=== PATIENT | male | born 1970 | race Caucasian/White ===

== ENCOUNTER 2020-04-26 14:56 | Emergency (ER) | payer OTHER, SELFPAY ==
[2020-04-26 15:05] VITALS: BP 169/75; PULSE 76; RESP 18; TEMP 36.1; O2SAT 98
--- NOTE | 2020-04-26 15:08 | ED.WOUNDLAC ---
HPI - Wound/Laceration General Chief Complaint: Wound/Laceration Stated Complaint: Laceration Time Seen by Provider: 04/26/20 15:08 Source: patient Mode of arrival: ambulatory Limitations: no limitations History of Present Illness HPI narrative: Patient is a 50-year-old male who presents for evaluation of left second finger laceration. Patient reports that he was using a drill when a piece of metal slipped when he removed the drill coming through the outside part of his left finger. Minimal active bleeding. No pain. No pain with movement. No numbness. Patient is up-to-date on his tetanus. Patient is right-hand dominant Related Data Allergies Allergy/AdvReac Type Severity Reaction Status Date / Time No Known Allergies Allergy Verified 04/26/20 15:09 Review of Systems Review of Systems: Narrative: CONSTITUTIONAL: Denies fever CARDIOVASCULAR: Denies chest pain RESPIRATORY: Denies cough GASTROINTESTINAL: Denies abdominal pain SKIN: Denies rash MUSCULOSKELETAL: Denies finger pain NEUROLOGIC: Denies numbness PMFSH Past Medical History Medical History Small bowel obstruction Social History Social History Smoking status: Never smoker Alcohol intake: current Drinks per week: 6 Exam Narrative: Exam Narrative: GENERAL: Awake, alert, conversant HEAD: Normocephalic, atraumatic. EYES: PERRLA and EOMI. ENT: Nares clear, no rhinorrhea or epistaxis. Mucous membranes moist. NECK: Supple. CHEST: No respiratory distress, breathing even and non labored HEART: Regular rate, sinus rhythm ABDOMEN:Non distended, non tender EXTREMITIES: Normal range of motion. No edema. SKIN: Warm, dry, distal 2 cm superficial, linear finger laceration to the volar aspect of the distal second left digit. Radial pulse 2+. Intact sensation median, ulnar, radial nerve distribution. Full flexion at the DIP and PIP without limitation. NEURO:No focal deficits. Alert and oriented x3 Course Vital Signs Vital signs: Vital Signs Temperature 36.1 C L 04/26/20 15:05 Pulse Rate 76 04/26/20 15:05 Respiratory Rate 18 04/26/20 15:05 Blood Pressure 169/75 H 04/26/20 15:05 Pulse Oximetry 98 04/26/20 15:05 Temperature 36.1 C L 04/26/20 15:05 Pulse Rate 76 04/26/20 15:05 Respiratory Rate 18 04/26/20 15:05 Blood Pressure 169/75 H 04/26/20 15:05 Pulse Oximetry 98 04/26/20 15:05 Procedures Laceration Laceration 1: Date: 04/26/20 Time: 15:54 Site: hand (finger) Side (If applicable): left Size (cm): 2 Description: linear and clean Depth: simple, single layer Local Anesthetic: lidocaine 1% Amount of anesthesia used (mL): 2 Pre-repair: wound explored and irrigated ====== Skin Level ====== Skin layer closed with: prolene Size (cm): 5-0 Number of sutures: 3 Technique: simple, interrupted ====== Subcutaneous Layer ====== ====== Muscle Layer ====== ====== Tendon Layer ====== MDM - Wound/Laceration MDM Narrative Medical decision making narrative: Patient was superficial finger laceration that was repaired. Patient is up-to-date on his tetanus. No neurovascular deficits. Patient wound repaired and discharged home with wound discharge instructions. Differential Diagnosis Differential diagnosis: Likely laceration Discharge Plan Discharge Clinical Impression: Laceration Patient Disposition: Home, Self-Care Condition: Stable Instructions: Laceration (ED) Additional Instructions: Please keep your wound clean and dry. Please do not soak it in any water. You may wash with antibacterial soap and pat it to dry. Please do not scrub the wound. Signs of infection including redness, purulent drainage from the site, worsening pain. If you feel any of these are present, please return to the emerg
== END 2020-04-26 16:09 | disposition home or self-care (01) ==
PROVIDERS: Emergency Provider Emergency Medicine; PCP Family Medicine
DX: S61.211A Laceration without foreign body of left index finger without damage to nail, initial encounter (principal); W29.8XXA Contact with other powered hand tools and household machinery, initial encounter
CPT/HCPCS: 12001; 99282

== ENCOUNTER 2020-10-16 07:30 | Outpatient (RCR) | payer OTHER, SELFPAY ==
--- NOTE | 2020-09-18 10:54 | PTOPEVAL ---
PHYSICAL THERAPY EVALUATION Thank you for referring Lebron Vincent to [facility] [place] Brayden was evaluated today for the dx of left RTC tendonitis. The patient is scheduled to be seen for therapy?2 x/week for 5 weeks. Please review, sign, date and return this plan of care STAN. I agree with and certify that the following plan of care is medically necessary. Referring Physician Date Attending Provider: Ken Nunes MD *PT Outpatient Evaluation Start: 09/18/20 09:33 Freq: Status: Active Protocol: Document 09/18/20 09:33 [facility] (Rec: 09/18/20 10:26 [facility] [id number]) Assessment Status Evaluation Evaluation Information Problem Diagnosis left rtc tendonitis Onset 1-2 months Cause overuse with exercise Additional Evaluation Detail The pain started about 7 months ago- no injury then pain has worsened since starting cross-fit for exercises. The patient continues cross fit but has modified his program to minimize shoulder pain. The pain is intermittent and occurs with certain reaching motions or pushing. The patient wants to rid pain and return to cross fit at best ability. Patient also wants to wean off advil. 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 Patient has pain with driving. 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 Previous Treatments Previous Treatments For This Problem gave cortisone shot; no relief yet Pain Assessment Timing of Pain Assessment Timing of Pain Assessment Assessment Pain Scale Pain Scale Used Numeric (1 - 10) Self Report Pain Assessment Left Shoulder(s) Reported Pain Level 0 Pain Frequency Acute Greatest Pain Intensity 7 Pain Aggravating Factors Exercise/Activity,Lifting Pain Score Pain Score 0: Self Report Interventions Used Interventions Used By Clinicians Education,Electrical Stimulation,Exercise,Heat Pain Relief Interventions Used By Inactivity/Rest,Position Patient Change Other Alleviating Interventions
--- NOTE | 2020-10-02 09:39 | PCPTNOTE ---
Patient did not show up for scheduled appointment this date. PT called patient-no answer. Left a message with a reminder for time of next appt.
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
--- NOTE | 2020-10-16 08:09 | PTOPEVAL ---
PHYSICAL THERAPY DISCHARGE SUMMARY Thank you for referring Lebron Vincent to [facility].? The patient has been seen for therapy? 5 visits and has met all goals. DC PT. Please review, sign, date and return this plan of care STAN. I agree with and certify the following plan of care. Referring Physician Date Attending Provider: Ken Nunes MD *PT Outpatient Discharge Start: 09/18/20 09:33 Freq: Status: Active Protocol: Document 10/16/20 07:29 [facility] (Rec: 10/16/20 08:07 [facility] [id number]) Assessment Status Discharge Evaluation Information Problem Diagnosis left rtc tendonitis Onset 1-2 months Cause overuse with exercise Additional Evaluation Detail Patient reports his shoulder doing very well for all reaching, and sleeping. Patient states he understands how to correct posture and is getting better with it. Patient feels the stretching is really helping. Pain Assessment Timing of Pain Assessment Timing of Pain Assessment Assessment Pain Scale Pain Scale Used Numeric (1 - 10) Self Report Pain Assessment Left Shoulder(s) Reported Pain Level 0 Pain Aggravating Factors None Pain Score Pain Score 0: Self Report Interventions Used Pain Relief Interventions Used By Exercise Patient Upper Extremity Range of Motion General Upper Extremity Range of Motion Reason Not Measured WFL/Left,WFL/Right Upper Extremity Muscle Strength Testing General Upper Extremity Strength Reason Not Measured WNL/Left,WNL/Right Gross Upper Extremity Strength Comments lower traps dk. 4-/5 *Extensive education completed regarding postural correction to decrease impingement and for proper exercises technique to engage scapular muscles with shoulder exercises. Special Tests-Upper Extremity Shoulder Special Tests Empty Can (supraspinatus) Test Negative Left,Negative Right Drop Arm Test Negative Left,Negative Right PT Clinical Summary Mr. Vincent has improved with a decreased pain, improved joint/muscle flexibility, posture control and the patient is I with HEP to continue on own at home. The patient has met all of his goal
--- NOTE | 2020-10-19 16:41 | PCPTNOTE ---
Documentation for manual therapy on 10/13/20 for charge with of one unit of manual therapy without documentation to support charge. The following information with reflect the care given for manual therapy. Patient recieved manual therapy in sidelying for scapular mobilization all direction with TPR into subscap/upper trap/pec; followed by supine pinned pec stretch on L side with shoulder abducted to 90degrees with TPR. GH mobilization and glides all directions with shoulder abducted to 90degrees ; followed by shoulder flexion with glides.
== END 2020-10-16 12:01 | disposition home or self-care (01) ==
LOC: ANHPT 07:30
PROVIDERS: PCP Family Medicine; Visit Provider Orthopaedic Surgery
DX: M75.42 Impingement syndrome of left shoulder (principal)
CPT/HCPCS: 97014; 97110; 97140; 97161; G0283

== ENCOUNTER 2022-03-18 10:32 | Outpatient (CLI) | payer OTHER, SELFPAY ==
--- NOTE | ~2022-03-18 | MR_ITS ---
EXAMINATION: MR shoulder LT wo con DATE: 03/18/2022 11:04 INDICATION: Left shoulder pain TECHNIQUE: Magnetic resonance imaging (MRI) of the left shoulder was performed without intravenous co ntrast. Sequences included axial PD-weighted FS FSE, coronal oblique PD-weighted FS FSE, coronal obli que T2-weighted FS FSE, sagittal PD-weighted FS FSE, and sagittal T1-weighted SE. COMPARISON: None. FINDINGS: Coracoacromial arch: The acromion undersurface is curved in morphology (type II). The coracoacromial ligament is normal. M ild acromioclavicular osteoarthritis with tiny subarticular cystic change at the lateral head of the clavicle. Rotator cuff: A couple small regions of mild tendinopathy at the distal supraspinatus and infraspinatus tendons wit hout discrete tear. The teres minor and subscapularis tendons are normal. Normal rotator cuff muscle bulk and signal. Biceps tendon, glenoid labrum and glenohumeral cartilage: Long head of the biceps tendon is normal. There is a superior, anterior to posterior tear of the mckinley oid labrum (SLAP tear) with linear increased signal beginning at the chondral labral junction at the 12:00 position and extending posteriorly to the 10:00 position. Glenohumeral cartilage is otherwise n ormal. Fluid: Small glenohumeral joint effusion extending into the deep subscapular and posterior recesses as well as with proportional amount of fluid extending distally along the long head biceps tendon sheath. No loose osteochondral bodies. No abnormal fluid signal in the subacromial/subdeltoid bursa to suggest b ursitis. Bones: Normal marrow signal with no edema, fracture or abnormal marrow replacing process. IMPRESSION: 1. SLAP tear extending from the 12:00 to 10:00 position of the superior to posterior superior glenoid labrum. 2. Mild supraspinatus and infraspinatus tendinopathy. Reviewed, dictated and finalized at location A. IMPRESSION: 1. SLAP tear extending from the 12:00 to 10:00 position of the superior to post erior superior glenoid labrum. 2. Mild supraspinatus and infraspinatus tendinopathy.
== END 2022-03-18 10:33 ==
PROVIDERS: PCP Family Medicine; Visit Provider Nurse Practitioner Family
DX: S43.432A Superior glenoid labrum lesion of left shoulder, initial encounter (principal); X58.XXXA Exposure to other specified factors, initial encounter
CPT/HCPCS: 73221

== ENCOUNTER 2022-05-01 08:08 | Emergency (ER) | payer OTHER, SELFPAY ==
--- NOTE | 2022-05-01 08:11 | ED.SKABFB ---
HPI - Skin/Abscess/Foreign Bdy General Chief complaint: Skin/Abscess/Foreign Body Stated complaint: RASH Time Seen by Provider: 05/01/22 08:15 Source: patient and RN notes reviewed Mode of arrival: ambulatory Limitations: no limitations History of Present Illness HPI narrative: 52-year-old male presents with concern for rash on his left upper extremity and neck. Reports he was exposed to poison will, reports he typically has a bad reaction of poison will. He reports he used hydrocortisone without relief. He denies swollen lips, swollen tongue, trouble breathing. MD complaint: rash Related Data Home Medications Medication Instructions Recorded Confirmed ibuprofen 200 mg tablet (Advil) 600 mg PO Q6H PRN 09/08/20 03/31/22 Allergies Allergy/AdvReac Type Severity Reaction Status Date / Time No Known Allergies Allergy Verified 03/31/22 10:36 Review of Systems Review of Systems: CONSTITUTIONAL: Denies malaise, chills, sweats, or fever. EYES: Denies redness, or discharge. ENT: Denies rhinorrhea, congestion, swollen lips, swollen tongue CARDIOVASCULAR: Denies chest pain, palpitations, or edema. RESPIRATORY: Denies cough or dyspnea. GASTROINTESTINAL: Denies abdominal pain, nausea, vomiting SKIN: Reports itchy rash on his left upper extremity and MUSCULOSKELETAL: Denies joint pain or myalgia. NEUROLOGIC: Denies headache. 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 There is no relevant family history pertinent to the presenting complaint Exam Narrative: GENERAL: Well-appearing, well-nourished, and in no acute distress. HEAD: Normocephalic, atraumatic. EYES: PERRLA, conjunctivae clear, and EOMI. ENT: Mucous membranes moist. Oropharynx without edema, erythema or lesions. NECK: Supple. No lymphadenopathy CHEST: Clear to auscultation. No respiratory distress. HEART: Regular rate and rhythm. SKIN: Warm, dry. Patches of erythema, papules, and plaque without vesicles noted to the left arm and neck NEURO: Alert and oriented x3. PSYCH: Normal mood and affect Course Course Emergency Course: Patient reports that he has used a Medrol Dosepak in the past successfully. Discussed benefits of of 12-day taper versus Medrol Dosepak, patient prefers Dosepak. Patient is aware of diagnosis, understands and agrees to treatment plan. Anticipatory guidance given. Patient agrees to follow-up as directed and is aware of reasons to seek care at the emergency department. Portions of this record may have been created with voice recognition software Level of Care: Express Care Visit Vital Signs Vital signs: Reviewed. MDM - Skin/Abscess/Foreign Bdy MDM Narrative Medical decision making narrative: Does not appear at this time to be erythema multiforme, bullous, SJS, TEN; no evidence at this time to suggest RMSF, endocarditis or Lyme disease; patient looks well, nontoxic and is tolerating oral intake; no neurologic signs or symptoms; no headache, photophobia or neck pain; afebrile; appropriate for initial outpatient treatment; discussed the importance of follow-up, patient agrees; question, viral exanthema, contact dermatitis, allergic dermatitis, eczema, urticaria, shingles. No soft palate or uvula edema, no tongue, lip edema or other mucosal involvement, no respiratory compromise, no stridor, no w
[2022-05-01 08:12] VITALS: BP 129/79; PULSE 86; RESP 16; TEMP 40.5; O2SAT 99
== END 2022-05-01 08:30 | disposition home or self-care (01) ==
PROVIDERS: Emergency Provider Nurse Practitioner; PCP Family Medicine
DX: L23.7 Allergic contact dermatitis due to plants, except food (principal); M19.90 Unspecified osteoarthritis, unspecified site
CPT/HCPCS: 99213; G0463

== ENCOUNTER 2022-05-23 02:19 | Day surgery (SDC) | payer OTHER, SELFPAY ==
[2022-05-16 13:40] VITALS: BMI 31.4
--- NOTE | 2022-05-16 13:56 | PC.NURSE ---
Report to the Outpatient Waiting Room, entrance under the green pavilion located off [facility], at time 9:00 am_ on date _05/23/22. OR Time: __11:00__. Time changes happen often and if your time is changed the preop area will call you the afternoon before. - You and your visitor will be asked to self-screen and do not enter if you have any COVID symptoms. - We encourage only one visitor and NO visitors under age 16 are allowed at this time. Your visitor will receive communication by the phone number that is given day of service. - The patient visitor is requested to social distance or may leave the building when not with patient due to restrictions. - A mask is required within the hospital. Patients may have clear liquids (water, carbonated beverages, clear teas, apple juice) until 3 hours prior to surgery with a maximum of 20 ounces. - No food from midnight until time of surgery - Take the following medications with a SIP of water the morning of surgery: _ESCITALOPRAM Medications to discontinue per physician N/A Date to take last dose____N/A Please no make-up, nail yi, hairspray, perfume, deodorant, or body powder the day of surgery. No jewelry (including any body piercings) or valuables the day of surgery, leave them at home. Please take a shower or bath the night before, or the morning of, surgery with an antibacterial soap. Wear comfortable, loose fitting clothing. - Jewelry must be removed prior to entering the operating room. Rings and piercings that are not removed may be cut off. - The hospital will not accept responsibility for valuables. - Please leave all valuables, including medications, at home the day of surgery. If you are going home after surgery, a licensed motor vehicle escort driver must drive you home. - NO public transportation without another adult. - We recommend that an adult stay with you for 24 hours following discharge. - We also recommend that you do not drive, make important decision, drink alcoholic beverages, or take any drugs that were not prescribed by your health care provider for at least 24 hours after your discharge time. Follow any additional instructions given to you from your surgeon. If you or anyone in your household have experienced Covid symptoms in the past week, please notify your surgeon or the nurse liaison at the phone number below for possible testing. Telephone instructions given to _THOM___and asked if any additional questions and then verbalized understanding. Patient advised to call surgeon office or pre surgery nurse liaison [phone] if any additional questions.
[2022-05-23] VITALS (8 sets, daily range): BP systolic 134–168; BP diastolic 77–92; PULSE 67–97; RESP 10–18; TEMP 36.7–37.2; O2SAT 94–100
--- NOTE | 2022-05-23 08:20 | P.PNAN_ITS ---
Anes - Initial Pre Proc Eval Procedure: Operation Date: 05/23/22 09:00 Proposed Procedures p Examination Under Anesthesia Left Shoulder with Cortisone Injection - Ken Nunes MD Date/Time: 05/23/22 08:20 Surgeon: Ken Nunes MD Pre Op Diagnosis: left frozen shoulder Patient Data Age: 52 Gender: M Height: 1.85 m Weight: 108 kg Allergies Allergy/AdvReac Type Severity Reaction Status Date / Time No Known Allergies Allergy Verified 05/12/22 08:29 Home Medications Medication Instructions Recorded Confirmed Type ibuprofen 200 mg tablet (Advil) 600 mg PO Q6H PRN Pain 09/08/20 05/16/22 History escitalopram oxalate 10 mg tablet 10 mg PO DAILY 05/16/22 05/16/22 History (Lexapro) Patient hx anesthesia problems: none Family hx anesthesia problems: none Results Review: All pre-operative results and documents have been reviewed as part of the pre- operative evaluation. 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 Informed Consent: The patient's anesthetic plan and its attendant risks and benefits were discussed with the patient/family/POA. Questions were solicited and answers provided to the satisfaction of the patient/family/POA.
[2022-05-23] MEDS: ACETAMINOPHEN 500 MG TABLET 1000 MG PO (08:43)
[2022-05-23] MEDS: KETOROLAC 15 MG/ML VIAL (*BKC) IV PUSH (08:44)
[2022-05-23] MEDS: LACTATED RINGERS 1,000 ML 30 ML IV CONT (08:45)
--- NOTE | 2022-05-23 08:46 | WPDHPUPDATE1 ---
History and Physical Update Update Date/Time: 05/23/22 08:46 History and Physical has been reviewed, including an updated exam of the patient. There are NO changes in the patient's condition. Risks, benefits, and alternatives have been discussed and questions answered. Patient agrees to proceed with procedure.
--- NOTE | 2022-05-23 09:28 | W.PM.PROC2 ---
Procedure Note - Detailed Date of Procedure 05/23/22 Pre-op Diagnosis left frozen shoulder Post-op Diagnosis Same Procedure Performed EUA left shoulder with manipulation and intra-articular injection. Surgeon Ken Nunes MD Anesthesia General Description of Procedure The patient was identified and proper site identified. He was taken to the operating room and left on the patient gurney. After general anesthetic induction in the left shoulder was examined. A gentle manipulation was then carried out and range of motion again assessed. Values are below in degrees: Pre Post elevation 95 170 internal rotation 20 70 external rotation 0 80 No difficulties were encountered during the evaluation or manipulation. After manipulation, the shoulder was injected intra-articularly with 2 milliliters of 1% lidocaine and 20 milligrams of Kenalog without incident. Patient tolerated procedure well. He was taken back to recovery area in stable condition. No known intraoperative complications. No blood loss. No antibiotics administered. Estimated Blood Loss 0 Drains No Packing No Pathology None sent Complications No immediate complications Condition Stable Disposition PACU
[2022-05-23] MEDS: LIDOCAINE HCL 1% PF INJ 5 ML VIAL 2 ML INFILTRATE (09:29)
[2022-05-23] MEDS: TRIAMCINOLONE ACET INJ 40 MG/ML VIAL 20 MG IM (09:30)
[2022-05-23] MEDS: fentaNYL CITRATE INJ (*CRX) 100 MCG/2 ML VIAL 25 MCG IV PUSH ×6 (09:40→09:59)
[2022-05-23] MEDS: oxyCODONE HCL (*CRX) 5 MG TAB IR PO (10:30)
== END 2022-05-23 11:22 | disposition home or self-care (01) ==
PROVIDERS: PCP Family Medicine; Visit Provider Orthopaedic Surgery
PROC: (CPT 23700; principal; 2022-05-23 09:00)
DX: M75.02 Adhesive capsulitis of left shoulder (principal); F41.9 Anxiety disorder, unspecified; E66.9 Obesity, unspecified; Z68.31 Body mass index [BMI] 31.0-31.9, adult
CPT/HCPCS: 23700; A9270; J0330; J1030; J1040; J1885; J2250; J2704; J3010; J3301; J7120

== ENCOUNTER 2024-02-08 08:29 | Outpatient (CLI) | payer OTHER, SELFPAY ==
--- NOTE | ~2024-02-08 | XR_ITS ---
Right Shoulder Technique: AP and axillary views were obtained. Clinical History: Pain Findings: No fracture or dislocation is seen. Osseous alignment is anatomic. The glenohumeral and acr omioclavicular joint spaces are preserved. Soft tissues are unremarkable. Impression: Unremarkable right shoulder radiographs. Reviewed, dictated and finalized at [facility]. Impression: Unremarkable right shoulder radiographs.
== END 2024-02-08 08:30 ==
PROVIDERS: PCP Family Medicine; Visit Provider Orthopaedic Surgery
DX: M25.511 Pain in right shoulder (principal)
CPT/HCPCS: 73030

== ENCOUNTER 2024-03-22 14:45 | Outpatient (RCR) | payer OTHER, SELFPAY ==
--- NOTE | 2024-02-22 15:36 | OPREHPOC ---
Outpatient Therapy Plan of Care This is a Multidisciplinary Plan of Care that may contain components documented by all disciplines (PT, OT, and ST.) PT Problem 1 PT Problem #1 Knowledge Deficit PT Goal 1 Goal Pt to be IND with issued HEP Target Visit 2 PT Problem 2 PT Problem #2 Impaired Range of Motion PT Goal 1 Goal Pt to improve active shoulder flexion to 140 deg. Target Visit 8 PT Goal 2 Goal Pt to improve active shoulder abduction to 140 deg . Target Visit 8 PT Problem 3 PT Problem #3 Impaired Range of Motion PT Goal 1 Goal Pt to improve functional int rot to within 2 spinal levels of L shoulder.
--- NOTE | 2024-02-22 15:37 | PTOPEVAL1 ---
Assessment and note entered by Avril Butterfield, PT, DPT Evaluation Information Assessment Status Evaluation Diagnosis R frozen shoulder ICD-10 Condition Codes (PT) M25.511,Weakness R53.1 Onset 3 months Subjective Information Pt states R shoulder pain in the last 3 months without a YASMEEN. 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 He declines any pain at rest, only with motions or towards his end ROM. He is right handed. Reported Pain Level Pain Score 0: Self Report Assessment PT Clinical Summary Pt demonstrates symptoms consistent with a frozen shoulder. He demonstrates decreased ROM both actively and passively. He reports no pain at rest and demonstrates no strength deficits. Skilled therapy services are indicated to address deficits noted above, to improve mobility, and to return to OF. Plan of Care Interventions Electrical Stimulation,Hot Pack/Cold Pack,Manual Therapy,Neuro Re-education,Patient/Caregiver Educati,Therapeutic Activities,Therapeutic Exercise PT Services Indicated Yes Treatment Frequency and 2x/wk for 8 visits Duration These treatments will address the objective and functional deficits as defined above. The patient will be advanced safely and appropriately in order for the patient to progress towards his/her prior level of function. Additional exercises will be introduced and as well as a comprehensive home exercise program upon discharge, if needed, ?to ensure carryover of functional gains achieved in the clinic. This treatment plan has been reviewed and agreement upon by the patient.
--- NOTE | 2024-03-21 14:22 | PCPTNOTE ---
Patient called to cancel this date due to being out of town.
--- NOTE | 2024-04-04 16:29 | PCPTNOTE ---
Patient now showed this date. Called and left voicemail.
--- NOTE | 2024-04-05 15:34 | PCPTNOTE ---
Patient was a No Show/No Call for today's Progress Note.
--- NOTE | 2024-05-07 09:12 | PTOPDC ---
Assessment and note entered by Avril Butterfield, PT, DPT Evaluation Information Assessment Status Discharge - Pt Not Present Diagnosis R frozen shoulder ICD-10 Condition Codes (PT) M25.511,Weakness R53.1 Onset 3 months Subjective Information Pt cancelled two and no showed last two appointment in his current POC. He will be discharged at this time per the attendance policy. Assessment PT Clinical Summary Pt was evaluated on 02/22/24 and complete 3 of 7 scheduled appointment. Will be d/c'ed at this time .
== END 2024-05-07 13:36 | disposition home or self-care (01) ==
LOC: ANHGOSHPT 14:45
PROVIDERS: PCP Family Medicine; Visit Provider Orthopaedic Surgery
DX: M75.01 Adhesive capsulitis of right shoulder (principal)
CPT/HCPCS: 97110; 97112; 97140; 97161